=== PATIENT | male | born 1990 | race Hispanic/Latino ===

== ENCOUNTER 2020-09-18 19:30 | Emergency (ER) | payer OTHER ==
[2020-09-18 20:06] VITALS: BP 147/83
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
== END 2020-09-18 22:03 | disposition home or self-care (01) ==
LOC: ED 19:30
DX: S70.02XA Contusion of left hip, initial encounter (principal); Z79.899 Other long term (current) drug therapy; V49.49XA Driver injured in collision with other motor vehicles in traffic accident, initial encounter; Y93.89 Activity, other specified; Y92.488 Other paved roadways as the place of occurrence of the external cause; Y99.8 Other external cause status
CPT/HCPCS: 99283